=== PATIENT | male | born 1960 | race American Indian/Alaskan Native ===

== ENCOUNTER 2018-03-23 13:20 | Emergency (ER) | payer BC ==
[2018-03-23] MEDS ORDERED: TYLENOL ONE (13:43)
[2018-03-23] MEDS ORDERED: TYLENOL PO ONE (13:44)
--- NOTE | 2018-03-23 14:22 | Emergency Department Report ---
Chief Complaint: Sore Throat Stated Complaint: SORE THROAT Time Seen by Provider: 03/23/18 14:19 - HPI History of Present Illness: 57-year-old male presents to the emergency department with complaint of a sore throat that started yesterday but worsened this morning. Patient presents with a fever but denies feeling febrile. He is able to drink and tolerates liquids but has some pain with doing so. He has a history of hypertension. His primary care physician is Dr. Adolfo Du. No recent travel or sick contacts at home. - ROS Review of Systems: Positive for sore throat and presents with fever Negative for neck pain, headache, chest pain, shortness of breath - Exam Vital Signs: Vital Signs 03/23/18 13:38 Temperature 101.3 F H Pulse Rate 84 Blood Pressure 107/77 O2 Sat by Pulse 98 Oximetry Physical Exam: Patient has a hypervascular appearance to the posterior pharynx. No tonsillar hypertrophy or exudates. There is some erythema and hypertrophy of the uvula. No drooling or trismus. MSE screening note: Focused history and physical exam performed. Due to findings the following was ordered: Patient will have a rapid strep test done ED Disposition for MSE Condition: Stable Referrals: PRIMARY CARE, [Primary Care Provider] - 3-5 Days
[2018-03-23] MEDS ORDERED: AUGMENTIN 875 MG PO ONE (14:55)
[2018-03-23 15:10] VITALS: BP 122/83
--- NOTE | 2018-03-23 15:12 | Emergency Department Report ---
HPI - General Chief Complaint: Sore Throat Time Seen by Provider: 03/23/18 14:19 - HPI HPI: 57-year-old male presents to the emergency department with complaint of a sore throat that started yesterday but worsened this morning. Patient presents with a fever but denies feeling febrile. He is able to drink and tolerates liquids but has some pain with doing so. He has a history of hypertension. His primary care physician is Dr. Adolfo Du. No recent travel or sick contacts at home. ED Past Medical Hx - Past Medical History Hx Hypertension: Yes - Surgical History Past Surgical History?: No - Social History Smoking Status: Current Every Day Smoker Substance Use Type: Alcohol - Medications Home Medications: Home Medications Medication Instructions Recorded Confirmed Last Taken Type Amoxicillin/Potassium Clav 1 each PO BID #20 tablet 03/23/18 Unknown Rx [Augmentin 875-125 Tablet] ED Review of Systems ROS: Stated complaint: SORE THROAT Other details as noted in HPI Comment: All other systems reviewed and negative Constitutional: fever (fever here but otherwise has not felt febrile). denies: chills Eyes: denies: eye pain, eye discharge, vision change ENT: throat pain. denies: ear pain Respiratory: denies: cough, shortness of breath, wheezing Cardiovascular: denies: chest pain, palpitations Gastrointestinal: denies: abdominal pain, nausea, diarrhea Genitourinary: denies: urgency, dysuria Musculoskeletal: denies: back pain, joint swelling, arthralgia Skin: denies: rash, lesions Neurological: denies: headache, weakness, paresthesias Physical Exam - Physical Exam Vital Signs: Vital Signs 03/23/18 13:38 Temperature 101.3 F H Pulse Rate 84 Blood Pressure 107/77 O2 Sat by Pulse 98 Oximetry Physical Exam: GENERAL: The patient is well-developed well-nourished. HENT: Normocephalic. Atraumatic. Patient has moist mucous membranes. Posterior pharynx is hypervascular and slightly irritated. There is no tonsillar hypertrophy. However the uvula is elongated and erythematous concerning for uvulitis. No drooling or trismus. EYES: Extraocular motions are intact. Pupils equal reactive to light bilaterally. NECK: Supple. Trachea is midline. CHEST/LUNGS: Clear to auscultation. There is no respiratory distress noted. HEART/CARDIOVASCULAR: Regular. There is no tachycardia. There is no murmur. ABDOMEN: There is no abdominal distention. SKIN: Skin is warm and dry. NEURO: The patient is awake, alert, and oriented. The patient is cooperative. The patient has no focal neurologic deficits. MUSCULOSKELETAL: There is no tenderness or deformity. There is no evidence of acute injury. ED Course Vital Signs 03/23/18 13:38 Temperature 101.3 F H Pulse Rate 84 Blood Pressure 107/77 O2 Sat by Pulse 98 Oximetry ED Medical Decision Making - Medical Decision Making Patient presents with sore throat that's been getting worse since yesterday. No drooling or trismus. He presents with a low-grade fever. He was given a dose of Tylenol and his fever resolved prior to discharge. Negative rapid strep but it appears more consistent with a uvulitis. He was given a dose of Augmentin here and was able to swallow down without any difficulty. He's been encouraged to follow-up with the primary care physician on Sunday, Dr. Du. He will be given a 10 day course of Augmentin and will use Tylenol/ibuprofen as needed for pain and fever control. He will return to the ER with any worsening of symptoms or any acute distress. - Differential Diagnosis strep pharyngitis, uvulitis, mono, viral pharyngitis Critical Care Time: No Critical care attestation.: If time is entered above; I have spent that time in minutes in the direct care of this critically ill patient, excluding procedure time. ED Disposition Clinical Impression: Uvulitis Pharyngitis Qualifiers: Pharyngitis/tonsillitis etiology: unspecified etiology Qualified Code(s): J02.9 - Acute pharyngitis, unspecified Disposition: - TO HOME OR SELFCARE Is pt being admited?: No Condition: Stable Instructions: Pharyngitis (ED), Uvulitis (ED) Additional Instructions: Please follow-up with your primary care physician in the next few days. Return to the emergency Department with any worsening of her symptoms, intractable fever, inability to swallow liquids and solids and stay hydrated and nourished, or with any acute distress. You can use Tylenol every 4 hours and ibuprofen every 6 hours, using weight- based dosing on the back of the bottle, as needed for fever or discomfort. Prescriptions: Amoxicillin/Potassium Clav [Augmentin 875-125 Tablet] 1 each PO BID #20 tablet Referrals: ADOLFO DU MD [Staff Physician] - 2-3 Days Forms: Work/School Release Form(ED) Time of Disposition: 15:12
== END 2018-03-23 15:22 | disposition home or self-care (01) ==
LOC: ED 13:20
DX: K12.2 Cellulitis and abscess of mouth (principal); J02.9 Acute pharyngitis, unspecified; I10 Essential (primary) hypertension; F17.200 Nicotine dependence, unspecified, uncomplicated
CPT/HCPCS: 87116; 87430; 99283

== ENCOUNTER 2019-05-14 11:22 | Emergency (ER) | payer BC ==
--- NOTE | 2019-05-14 12:04 | Emergency Department Report ---
ED ENT HPI - General Chief complaint: Earache Stated complaint: EAR PAIN Time Seen by Provider: 05/14/19 12:00 Source: patient Mode of arrival: Ambulatory Limitations: No Limitations - History of Present Illness Initial comments: This is a 58-year-old male nontoxic well in appearance with no signs of distress presents to the ED with complaint of left earache. Patient denies any hearing loss. Denies any mastoid tenderness. Denies any fever, chills, headache, nausea, vomiting, chest pain or SOB. Denies any other complaints. Denies any allergies. MD complaint: ear pain -: days(s) Location: R ear Severity: mild Severity scale (0 -10): 8 Quality: aching Consistency: constant Improves with: none Worsens with: none Associated Symptoms: denies: fever, cough, gum swelling, toothache, pain with swallowing, sore throat, tinnitus, hearing loss, discharge from ear, rhinorrhea - Related Data Previous Rx's Medication Instructions Recorded Last Taken Type Amoxicillin/Potassium Clav 1 each PO BID #20 tablet 03/23/18 Unknown Rx [Augmentin 875-125 Tablet] Acetaminophen/Codeine [Tylenol 1 tab PO Q6H PRN #12 tab 05/14/19 Unknown Rx /Codeine # 3 tab] Amoxicillin [Amoxicillin TAB] 875 mg PO BID #20 tablet 05/14/19 Unknown Rx Allergies Allergy/AdvReac Type Severity Reaction Status Date / Time No Known Allergies Allergy Unverified 03/23/18 13:43 ED Dental HPI - General Chief complaint: Earache Stated complaint: EAR PAIN Time Seen by Provider: 05/14/19 12:00 Source: patient Mode of arrival: Ambulatory Limitations: No Limitations - Related Data Previous Rx's Medication Instructions Recorded Last Taken Type Amoxicillin/Potassium Clav 1 each PO BID #20 tablet 03/23/18 Unknown Rx [Augmentin 875-125 Tablet] Acetaminophen/Codeine [Tylenol 1 tab PO Q6H PRN #12 tab 05/14/19 Unknown Rx /Codeine # 3 tab] Amoxicillin [Amoxicillin TAB] 875 mg PO BID #20 tablet 05/14/19 Unknown Rx Allergies Allergy/AdvReac Type Severity Reaction Status Date / Time No Known Allergies Allergy Unverified 03/23/18 13:43 ED Review of Systems ROS: Stated complaint: EAR PAIN Other details as noted in HPI Constitutional: denies: chills, fever Eyes: denies: eye pain, eye discharge, vision change ENT: ear pain. denies: throat pain Respiratory: denies: cough, shortness of breath, wheezing Cardiovascular: denies: chest pain, palpitations Endocrine: no symptoms reported Gastrointestinal: denies: abdominal pain, nausea, diarrhea Genitourinary: denies: urgency, dysuria Musculoskeletal: denies: back pain, joint swelling, arthralgia Skin: denies: rash, lesions Neurological: denies: headache, weakness, paresthesias Psychiatric: denies: anxiety, depression Hematological/Lymphatic: denies: easy bleeding, easy bruising ED Past Medical Hx - Past Medical History Previous Medical History?: Yes Hx Hypertension: Yes - Surgical History Past Surgical History?: No - Social History Smoking Status: Current Every Day Smoker Substance Use Type: Alcohol - Medications Home Medications: Home Medications Medication Instructions Recorded Confirmed Last Taken Type Amoxicillin/Potassium Clav 1 each PO BID #20 tablet 03/23/18 Unknown Rx [Augmentin 875-125 Tablet] Acetaminophen/Codeine [Tylenol 1 tab PO Q6H PRN #12 tab 05/14/19 Unknown Rx /Codeine # 3 tab] Amoxicillin [Amoxicillin TAB] 875 mg PO BID #20 tablet 05/14/19 Unknown Rx ED Physical Exam - General Limitations: No Limitations General appearance: alert, in no apparent distress - Head Head exam: Present: atraumatic, normocephalic - Eye Eye exam: Present: normal appearance - Expanded ENT Exam Expanded Ear exam: Present: normal external inspection TM/Canal exam: Erythema: Right TM, Bulging: Right TM Mouth exam: Present: normal external inspection Teeth exam: Present: normal inspection Throat exam: Positive: normal inspection - Neck Neck exam: Present: normal inspection, full ROM. Absent: tenderness, meningismus, lymphadenopathy - Extremities Exam Extremities exam: Present: normal inspection, full ROM - Back Exam Back exam: Present: normal inspection, full ROM - Neurological Exam Neurological exam: Present: alert, oriented X3, normal gait - Psychiatric Psychiatric exam: Present: normal affect, normal mood - Skin Skin exam: Present: warm, dry, intact, normal color. Absent: rash - Other Other exam information: no mastoid tenderness. ED Course - Reevaluation(s) Reevaluation #1: 05/14/19 12:02 Patient is speaking in full sentences with no signs of distress noted. ED Medical Decision Making - Medical Decision Making Patient was instructed to Follow-up with a primary care doctor in 3-5 days or if symptoms worsen and continue return to emergency room as soon as possible. At time of discharge, the patient does not seem toxic or ill in appearance. No acute signs of distress noted. Patient agrees to discharge treatment plan of care. No further questions noted by the patient. Critical care attestation.: If time is entered above; I have spent that time in minutes in the direct care of this critically ill patient, excluding procedure time. ED Disposition Clinical Impression: Right otitis media Qualifiers: Otitis media type: unspecified Qualified Code(s): H66.91 - Otitis media, unspecified, right ear Disposition: TO HOME OR SELFCARE Is pt being admited?: No Does the pt Need Aspirin: No Condition: Stable Instructions: Otitis Media (ED) Additional Instructions: Follow-up with a primary care doctor in 3-5 days or if symptoms worsen and continue return to emergency room as soon as possible. Prescriptions: Amoxicillin [Amoxicillin TAB] 875 mg PO BID #20 tablet Acetaminophen/Codeine [Tylenol /Codeine # 3 tab] 1 tab PO Q6H PRN #12 tab PRN Reason: Pain , Severe (7-10) Referrals: PRIMARY CARE, [Referring] - 3-5 Days RAMAN STODDARD MD [Staff Physician] - 3-5 Days [facility] [Outside] - 3-5 Days Forms: Work/School Release Form(ED)
[2019-05-14 12:05] VITALS: BP 104/74
== END 2019-05-14 12:52 | disposition home or self-care (01) ==
LOC: ED 11:22
DX: H66.91 Otitis media, unspecified, right ear (principal); I10 Essential (primary) hypertension; F17.200 Nicotine dependence, unspecified, uncomplicated; Z79.899 Other long term (current) drug therapy
CPT/HCPCS: 99282

== ENCOUNTER 2019-10-03 13:40 | Emergency (ER) | payer BC, OTHER ==
--- NOTE | 2019-10-03 14:58 | Event Note ---
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 Further treatment and workup at subsequent clinical providers discretion. Patient/guardian urged not to elope from the ED as their condition may be serious if not clinically assessed and managed.
[2019-10-03 15:00] VITALS: BP 188/125
[2019-10-03] MEDS ORDERED: KETOROLAC 30 MG/1 ML INJ IM ONE (16:08)
[2019-10-03] MEDS ORDERED: dexAMETHasone 20 MG/5 ML VIAL IM ONE (16:08)
--- NOTE | 2019-10-03 16:14 | Emergency Department Report ---
ED Back Pain/Injury HPI - General Chief Complaint: Back Pain/Injury Stated Complaint: RIGHT BACK PAIN Time Seen by Provider: 10/03/19 14:55 Source: patient Limitations: No Limitations - History of Present Illness Initial Comments: This pleasant 59-year-old male presents the emergency department with chief complaint of right-sided lower back pain that radiates down the right leg. Patient rates the severity of his pain as 8 out of 10. He reports pain is aggravated by movement and there are no alleviating factors. Patient reports she has had similar pain over the past years however this has been aggravated of the past week. He reports past medical history of hypertension which she normally takes amlodipine. He states he just recently took it 30 minutes prior to arrival. He denies any previous surgeries. He specifically denies any associated fevers, chills, night sweats, headache, dizziness, blurry vision, chest pain, shortness of breath, urinary or bowel incontinence, saddle anesthesia, urinary retention or any other associated symptoms. - Related Data Previous Rx's Medication Instructions Recorded Last Taken Type Amoxicillin/Potassium Clav 1 each PO BID #20 tablet 03/23/18 Unknown Rx [Augmentin 875-125 Tablet] Acetaminophen/Codeine [Tylenol 1 tab PO Q6H PRN #12 tab 05/14/19 Unknown Rx /Codeine # 3 tab] Amoxicillin [Amoxicillin TAB] 875 mg PO BID #20 tablet 05/14/19 Unknown Rx Naproxen 500 mg PO BID #20 tablet 10/03/19 Unknown Rx methOCARBAMOL [Robaxin TAB] 500 mg PO Q6H #20 tablet 10/03/19 Unknown Rx methylPREDNISolone [Medrol 4MG 4 mg PO QDAY #1 tab.ds.pk 10/03/19 Unknown Rx DOSEPAK (21 tabs)] Allergies Allergy/AdvReac Type Severity Reaction Status Date / Time No Known Allergies Allergy Unverified 03/23/18 13:43 ED Review of Systems ROS: Stated complaint: RIGHT BACK PAIN Other details as noted in HPI Comment: All other systems reviewed and negative Constitutional: denies: chills, fever Eyes: denies: eye pain, eye discharge, vision change ENT: denies: ear pain, throat pain Respiratory: denies: cough, shortness of breath, wheezing Cardiovascular: denies: chest pain, palpitations Endocrine: no symptoms reported Gastrointestinal: denies: abdominal pain, nausea, diarrhea Genitourinary: denies: urgency, dysuria Musculoskeletal: denies: back pain, joint swelling, arthralgia Skin: denies: rash, lesions Neurological: denies: headache, weakness, paresthesias Psychiatric: denies: anxiety, depression Hematological/Lymphatic: denies: easy bleeding, easy bruising ED Past Medical Hx - Past Medical History Previous Medical History?: Yes Hx Hypertension: Yes - Surgical History Past Surgical History?: No - Social History Smoking Status: Current Every Day Smoker Substance Use Type: Alcohol - Medications Home Medications: Home Medications Medication Instructions Recorded Confirmed Last Taken Type Amoxicillin/Potassium Clav 1 each PO BID #20 tablet 03/23/18 Unknown Rx [Augmentin 875-125 Tablet] Acetaminophen/Codeine [Tylenol 1 tab PO Q6H PRN #12 tab 05/14/19 Unknown Rx /Codeine # 3 tab] Amoxicillin [Amoxicillin TAB] 875 mg PO BID #20 tablet 05/14/19 Unknown Rx Naproxen 500 mg PO BID #20 tablet 10/03/19 Unknown Rx methOCARBAMOL [Robaxin TAB] 500 mg PO Q6H #20 tablet 10/03/19 Unknown Rx methylPREDNISolone [Medrol 4MG 4 mg PO QDAY #1 tab.ds.pk 10/03/19 Unknown Rx DOSEPAK (21 tabs)] ED Physical Exam - General Limitations: No Limitations General appearance: alert, in no apparent distress - Head Head exam: Present: atraumatic, normocephalic - Eye Eye exam: Present: normal appearance - ENT ENT exam: Present: normal exam, normal orophraynx, mucous membranes moist - Neck Neck exam: Present: normal inspection. Absent: tenderness, meningismus - Respiratory Respiratory exam: Present: normal lung sounds bilaterally. Absent: respiratory distress, wheezes, rales, rhonchi, stridor - Cardiovascular Cardiovascular Exam: Present: regular rate, normal rhythm. Absent: systolic murmur, diastolic murmur, rubs, gallop - GI/Abdominal GI/Abdominal exam: Present: soft, normal bowel sounds. Absent: distended, tenderness, guarding, rebound, rigid, pulsatile mass - Rectal Rectal exam: Present: deferred - Extremities Exam Extremities exam: Present: normal inspection, full ROM, other (no posterior calf tenderness bilaterally, negative Homans sign bilaterally.). Absent: tenderness - Back Exam Back exam: Present: normal inspection, full ROM, tenderness (tenderness to the right upper gluteal muscle. No tenderness to palpation over the midline lumbar) - Neurological Exam Neurological exam: Present: alert, oriented X3 - Psychiatric Psychiatric exam: Present: normal affect, normal mood - Skin Skin exam: Present: warm, dry, intact, normal color. Absent: rash ED Course Vital Signs 10/03/19 14:55 Temperature 97.7 F Pulse Rate 61 Respiratory 18 Rate Blood Pressure 188/125 Blood Pressure 183/106 [Right] O2 Sat by Pulse 99 Oximetry ED Medical Decision Making - Medical Decision Making Patient is nontoxic in no acute distress. He had no injury and midline tenderness of the lumbar spine making fracture unlikely no imaging was indicated at this time. Patient will be treated for lumbosacral radiculopathy with IM steroids and Toradol and given outpatient follow-up with orthopedics. Recommended return emergently with any saddle anesthesia, urinary bowel incontinence, fever, urinary retention or any other associated symptoms. Patient history cancer making metastatic disease of the spine likely. Patient had no injury acute epidural hematoma unlikely. Patient denies fever or IV drug use making epidural abscess unlikely. Patient verbalizes understanding of the diagnosis, treatment plan and follow-up instructions and all his questions were answered. - Differential Diagnosis strain, sprain, fracture Critical care attestation.: If time is entered above; I have spent that time in minutes in the direct care of this critically ill patient, excluding procedure time. ED Disposition Clinical Impression: Lumbosacral radiculopathy Disposition: - TO HOME OR SELFCARE Is pt being admited?: No Condition: Stable Instructions: Low Back Strain (ED) Prescriptions: methylPREDNISolone [Medrol 4MG DOSEPAK (21 tabs)] 4 mg PO QDAY #1 tab.ds.pk Naproxen 500 mg PO BID #20 tablet methOCARBAMOL [Robaxin TAB] 500 mg PO Q6H #20 tablet Referrals: NATHAN RIBEIRO MD [Staff Physician] - 3-5 Days Forms: Work/School Release Form(ED) Time of Disposition: 16:15
== END 2019-10-03 17:07 | disposition home or self-care (01) ==
LOC: ED 13:40
DX: M54.17 Radiculopathy, lumbosacral region (principal); F17.200 Nicotine dependence, unspecified, uncomplicated; I10 Essential (primary) hypertension
CPT/HCPCS: 96372; 99282; J1100; J1885

== ENCOUNTER 2019-11-06 01:22 | Inpatient (IN) | payer OTHER ==
--- NOTE | 2019-11-06 01:27 | Emergency Department Report ---
HPI - General Time Seen by Provider: 11/06/19 01:23 - HPI HPI: 59-year-old -[place] male presents to the emergency department via EMS from home with the complaint of some altered mental status and a witnessed seizure. The patient went to sleep around 10:30 and was complaining to his that he was "seeing colors." Prior to presentation the patient had witnessed seizure-like activity and he does not have any seizure history. After the seizure the patient became altered, was rambling and agitated. He is awake and is currently a poor historian. He has a past medical history of hypertension. The patient was here about one month ago for some issues with back pain. A code stroke was initiated. ED Past Medical Hx - Past Medical History Hx Hypertension: Yes - Social History Smoking Status: Current Every Day Smoker Substance Use Type: Alcohol - Medications Home Medications: Home Medications Medication Instructions Recorded Confirmed Last Taken Type Amoxicillin/Potassium Clav 1 each PO BID #20 tablet 03/23/18 Unknown Rx [Augmentin 875-125 Tablet] Acetaminophen/Codeine [Tylenol 1 tab PO Q6H PRN #12 tab 05/14/19 Unknown Rx /Codeine # 3 tab] Amoxicillin [Amoxicillin TAB] 875 mg PO BID #20 tablet 05/14/19 Unknown Rx Naproxen 500 mg PO BID #20 tablet 10/03/19 Unknown Rx methOCARBAMOL [Robaxin TAB] 500 mg PO Q6H #20 tablet 10/03/19 Unknown Rx methylPREDNISolone [Medrol 4MG 4 mg PO QDAY #1 tab.ds.pk 10/03/19 Unknown Rx DOSEPAK (21 tabs)] ED Review of Systems ROS: Stated complaint: AMS/SEIZURE Other details as noted in HPI Comment: Unobtainable due to pts medical conditions Physical Exam - Physical Exam Physical Exam: GENERAL: The patient is well-developed well-nourished. HEENT: Normocephalic. Atraumatic. Patient has moist mucous membranes. EYES: Extraocular motions are intact. Pupils equal and reactive to light bilaterally. NECK: Supple. Trachea is midline. CHEST/LUNGS: Clear to auscultation. There is no respiratory distress noted. HEART/CARDIOVASCULAR: Regular. There is no tachycardia. There is no murmur. ABDOMEN: Abdomen is soft, nontender. Patient has normal bowel sounds. There is no abdominal distention. SKIN:Skin is warm and dry. . NEURO: The patient is awake, alert, and cooperative. No motor or sensory deficits. There is no dysarthria but some questionable aphasia. No facial asymmetry. No pronator drift. MUSCULOSKELETAL: There is no tenderness or deformity. There is no limitation range of motion. There is no evidence of acute injury. ED Course - Consultations Consultation #1: 11/06/19 04:40 The patient was seen by the telemedicine neurologist, Dr. Quiroga, immediately after the patient returned from CT for his CT scan of the head. Dr. Quiroga gave him a NIH stroke scale of 1. He felt the patient's presentation was more consistent with a postictal state after a new onset of seizures and did not feel that TPA was indicated. ED Medical Decision Making - Lab Data Result diagrams: 11/06/19 01:57 11/06/19 01:57 - EKG Data -: EKG Interpreted by De EKG shows normal: sinus rhythm (sinus arrhythmia), axis, intervals (prolonged MT interval), QRS complexes (LVH), ST-T waves Rate: normal (58 bpm) - EKG Data When compared to previous EKG there are: previous EKG unavailable Interpretation: other (sinus arrhythmia with mild bradycardia, prolonged MT interval, LVH) - Radiology Data Radiology results: report reviewed CT HEAD WITHOUT CONTRAST INDICATION: STROKE PROTOCOL!!! Stroke-like symptoms TECHNIQUE: Axial slices were obtained through the head. Coronal and sagittal reformatted images were obtained. COMPARISON: None available. FINDINGS: There is no intracranial hemorrhage or extra-axial fluid collection. There is mild atrophy. There is microangiopathy. There is no mass lesion or midline shift. There are small hypodensities in the right caudate nucleus characteristic of infarctions. These appear to be chronic.98 no large territorial infarct is identified . There is also some decreased attenuation in the left insular cortex characteristic of ischemic change. This is age indeterminate Bone windows demonstrate no acute osseous abnormality. Paranasal sinuses and mastoid air cells appear clear. TECHNIQUE: All CT scans at this facility use dose modulation, iterative reconstruction, automated exposure control, weight based dosing, when appropriate, to reduce radiation dose to as low as reasonably achievable. IMPRESSION: 1. There is no intracranial hemorrhage. Hypodensities in the right caudate nucleus are characteristic of infarctions. These appear to be chronic. There is some decreased attenuation in the left insular cortex also likely related to is chemic change. This is age indeterminate. There is mild atrophy. There is microangiopathic change. - Medical Decision Making This patient presents to the emergency department after having some type of colorful visual disturbance, and then having some witnessed seizure-like activity followed by some type of altered mental status. The patient arrives to the emergency department awake and cooperative but his is at bedside and says that he is not making sense and his speech is altered, although not significantly slurred. For this reason a code stroke was initiated. CT scan of the head was done that did not show any acute intracranial hemorrhage. There was no mention of an age-indeterminate area of decreased attenuation in the left insular cortex. An EKG was done that showed some LVH and a prolonged MT interval but otherwise no ST elevation AR. Patient had an extremely elevated T SH but only a mildly decreased free T4. Patient also has a urinary tract infection. He has been treated with Rocephin. The patient's mentions that the patient often drinks alcohol on a regular basis "when he can get it." He does not have any other signs of alcohol withdrawal at this time but this is also in consideration with this new onset of seizures. The alcohol withdrawal protocol has been placed on this patient but he has not required any Ativan for a high enough CIWA score. The patient will be admitted to the hospital for further evaluation and treatment and was accepted for admission by the hospitalist, Dr. Rodriguez. - Differential Diagnosis CVA, TIA, seizures with postictal state, alcohol withdrawal seizure Critical Care Time: No Critical care attestation.: If time is entered above; I have spent that time in minutes in the direct care of this critically ill patient, excluding procedure time. ED Disposition Clinical Impression: New onset seizure Hypertension Qualifiers: Hypertension type: essential hypertension Qualified Code(s): I10 - Essential (primary) hypertension Hypothyroidism Qualifiers: Hypothyroidism type: unspecified Qualified Code(s): E03.9 - Hypothyroidism, unspecified UTI (urinary tract infection) Qualifiers: Urinary tract infection type: acute cystitis Hematuria presence: without hematuria Qualified Code(s): N30.00 - Acute cystitis without hematuria Disposition: OP ADMIT IP TO THIS HOSP Is pt being admited?: Yes Condition: Fair Time of Disposition: 04:45
--- NOTE | 2019-11-06 01:37 | Consultation ---
History of Present Illness History of present illness: [facility] Date of Service: 11/06/2019 01:20:49 Impression: RO Acute Ischemic Stroke seizure Comments: 1. Cardioembolic stroke 2. Small vessel disease/lacune 3. Thromboembolic, [id number] mechanism 4. Hypercoagulable state-related infarct 5. Thrombotic mechanism, large artery disease 6. Transient ischemic attack Metrics: Last Known Well: 10/30/2019 22:00:00 [facility] Notification Time: 11/06/2019 01:20:25 Arrival Time: 11/06/2019 01:22:00 Stamp Time: 11/06/2019 01:20:49 Time First Login Attempt: 11/06/2019 01:24:33 Video Start Time: 11/06/2019 01:24:33 Symptoms: AMS and seizure NIHSS Start Assessment Time: 11/06/2019 01:43:12 Patient is not a candidate for tPA. Patient was not deemed candidate for tPA thrombolytics because of No focal neurologic deficits. NIHSS 1 for missing orientation to month. CT head was reviewed. Presentation is not suggestive of Large Vessel Occlusive disease. Advanced imaging was not obtained as the presentation was not suggestive of Large Vessel Occlusive Disease. ED Physician notified of diagnostic impression and management plan on 11/06/2019 01:47:37 Our recommendations are outlined below. Recommendations: Activate Stroke Protocol Admission/Order Set Stroke/Telemetry Floor Neuro Checks Bedside Swallow Eval DVT Prophylaxis IV Fluids, Normal Saline Head of Bed Below 30 Degrees Euglycemia and Avoid Hyperthermia (PRN Acetaminophen) Keppra 1 gram now and then 500 mg BID ASA if no contraindication Recommended Scan: MRI Head with and Without Contrast Lipid Panel to Be Obtained, if Not Done in the Last Three Months Therapies: Physical Therapy, Occupational Therapy, Speech Therapy Assessment When Applicable Dysphaghia Screen: Swallow Evaluation, Bedside NPO Until Swallow Evaluation DVT prophylaxis: Choice of Primary Team Disposition: Follow up with Teleneurology Follow up Sign Out: Discussed with Emergency Department Provider History of Present Illness: Patient is a 59 year old Male. Patient was brought by EMS for symptoms of AMS and seizure 59 y/o man with h/o HTN presents with AMS and new onset seizure. Emergent telestroke consult. Last known normal at 2200 as per at bedside. No h/o seizures as per at bedside. Emergent telestroke consult requested. CT head reviewed and case discussed with ED Staff. EMS reported the patient had a seizure which lasted about a minute and has been post-ictal. No recent illnesses as per . Patient is awake and alert. NIHSS 1 (missed month). Patient denies tongue bite. No incontinence. CT head was reviewed. Examination: 1A: Level of Consciousness - Alert; keenly responsive + 0 1B: Ask Month and Age - 1 Question Right + 1 1C: Blink Eyes & Squeeze Hands - Performs Both Tasks + 0 2: Test Horizontal Extraocular Movements - Normal + 0 3: Test Visual Trejo - No Visual Loss + 0 4: Test Facial Palsy (Use Grimace if Obtunded) - Normal symmetry + 0 5A: Test Left Arm Motor Drift - No Drift for 10 Seconds + 0 5B: Test Right Arm Motor Drift - No Drift for 10 Seconds + 0 6A: Test Left Leg Motor Drift - No Drift for 5 Seconds + 0 6B: Test Right Leg Motor Drift - No Drift for 5 Seconds + 0 7: Test Limb Ataxia (FNF/Heel-Harp) - No Ataxia + 0 8: Test Sensation - Normal; No sensory loss + 0 9: Test Language/Aphasia - Normal; No aphasia + 0 10: Test Dysarthria - Normal + 0 11: Test Extinction/Inattention - No abnormality + 0 NIHSS Score: 1 Patient and patient's spouse was informed the Neurology Consult would happen via TeleHealth consult by way of interactive audio and video telecommunications and consented to receiving care in this manner. Due to the immediate potential for life-threatening deterioration due to underlying acute neurologic illness, I spent 20 minutes providing critical care. This time includes time for face to face visit via telemedicine, review of medic al records, imaging studies and discussion of findings with providers, the patient and/or family. Dr Poli Quiroga [facility] Case [id number] Medications and Allergies Allergies Allergy/AdvReac Type Severity Reaction Status Date / Time No Known Allergies Allergy Unverified 03/23/18 13:43 Home Medications Medication Instructions Recorded Confirmed Last Taken Type Amoxicillin/Potassium Clav 1 each PO BID #20 tablet 03/23/18 Unknown Rx [Augmentin 875-125 Tablet] Acetaminophen/Codeine [Tylenol 1 tab PO Q6H PRN #12 tab 05/14/19 Unknown Rx /Codeine # 3 tab] Amoxicillin [Amoxicillin TAB] 875 mg PO BID #20 tablet 05/14/19 Unknown Rx Naproxen 500 mg PO BID #20 tablet 10/03/19 Unknown Rx methOCARBAMOL [Robaxin TAB] 500 mg PO Q6H #20 tablet 10/03/19 Unknown Rx methylPREDNISolone [Medrol 4MG 4 mg PO QDAY #1 tab.ds.pk 10/03/19 Unknown Rx DOSEPAK (21 tabs)]
[2019-11-06] MEDS ORDERED: ASPIRIN 81 MG TAB CHEW PO ONE (01:50)
[2019-11-06] MEDS ORDERED: ASPIRIN 81 MG TAB CHEW ONE (01:53)
[2019-11-06] MEDS ORDERED: levETIRAcetam 1000 MG/NS 0.75% 1,000 MG/100 ML BAG IV ONE ×2 (01:56→04:48)
--- NOTE | 2019-11-06 02:02 | Cat Scan Report ---
CT HEAD WITHOUT CONTRAST INDICATION: STROKE PROTOCOL!!! Stroke-like symptoms TECHNIQUE: Axial slices were obtained through the head. Coronal and sagittal reformatted images were obtained. COMPARISON: None available. FINDINGS: There is no intracranial hemorrhage or extra-axial fluid collection. There is mild atrophy. There is microangiopathy. There is no mass lesion or midline shift. There are small hypodensities in the right caudate nucleus characteristic of infarctions. These appear to be chronic.98 no large territorial in farct is identified . There is also some decreased attenuation in the left insular cortex characteristic of ischemic change . This is age indeterminate Bone windows demonstrate no acute osseous abnormality. Paranasal sinuses and mastoid air cells appear clear. TECHNIQUE: All CT scans at this facility use dose modulation, iterative reconstruction, automated ex posure control, weight based dosing, when appropriate, to reduce radiation dose to as low as reasonab ly achievable. IMPRESSION: 1. There is no intracranial hemorrhage. Hypodensities in the right caudate nucleus are characteristic of infarctions. These appear to be nurses' registry director linda. There is some decreased attenuation in the left insular cortex also likely related to ischemic c hange. This is age indeterminate. There is mild atrophy. There is microangiopathic change. Stroke protocol: Results were phoned to Dr. Herrera in the emergency department at 0057 hours central time Signer Name: Jesus Rm MD Signed: 11/06/2019 1:57 AM Workstation Name: [id number]
[2019-11-06 02:05] LABS: Basophils % (Auto) 0.5 % (0.0-1.8); Eosinophils # (Auto) 0.2 K/mm3 (0.0-0.4); Eosinophils % (Auto) 2.3 % (0.0-4.3); Hematocrit 37.9 % (35.5-45.6); Hemoglobin 12.4 gm/dl (11.8-15.2); Lymphocytes # (Auto) 1.5 K/mm3 (1.2-5.4); Lymphocytes % (Auto) 14.1 % (13.4-35.0); Mean Corpuscular HGB Conc 33 % (32-34); Mean Corpuscular Volume 85 fl (84-94); Monocytes # (Auto) 0.5 K/mm3 (0.0-0.8); Monocytes % (Auto) 4.9 % (0.0-7.3); Platelet Count 257 K/mm3 (140-440); Red Blood Count 4.47 M/mm3 (3.65-5.03); Red Cell Distribution Width 17.2 % (13.2-15.2)
[2019-11-06] MEDS ORDERED: LORazepam 2 MG/ML VIAL IV PRN ×2 (02:10)
[2019-11-06 02:23] LABS: Alanine Aminotransferase 14 units/L (7-56); Albumin 4.3 g/dL (3.9-5); BUN/Creatinine Ratio 11; Blood Urea Nitrogen 15 mg/dL (9-20); Calcium 9.6 mg/dL (8.4-10.2); Hemolysis Index 1
[2019-11-06 02:28] LABS: INR 1.09 (0.87-1.13); Partial Thromboplastin Time 26.7 Sec. (24.2-36.6); Thrombin Time 16.3 Sec. (15.1-19.6)
[2019-11-06 03:18] LABS: Bacteria,Urine 1+ /HPF (Negative); Bilirubin,Urine NEG (Negative); Blood,Urine SM (Negative); Color,Urine Straw (Yellow); Mucus,Urine FEW /HPF; Urobilinogen,Urine < 2.0 mg/dL (<2.0)
[2019-11-06 03:20] LABS: Amphetamine Screen,Urine PRESUMPTIVE NEGATIVE; Benzodiazepines Screen,Urine PRESUMPTIVE NEGATIVE; Cannabinoid Screen,Urine PRESUMPTIVE NEGATIVE; Cocaine Screen,Urine PRESUMPTIVE NEGATIVE; Methadone Screen,Urine PRESUMPTIVE NEGATIVE; Opiate Screen,Urine PRESUMPTIVE NEGATIVE
[2019-11-06] MEDS ORDERED: cefTRIAXone/NS 1 GM/50 ML 1 GM/50 ML BAG IV ONE (04:02)
[2019-11-06] MEDS ORDERED: ONDANSETRON 4 MG/2 ML INJ IV PRN (05:13)
[2019-11-06] MEDS ORDERED: ACETAMINOPHEN 325 MG TAB PO PRN (05:13)
[2019-11-06] MEDS ORDERED: hydrALAZINE 20 MG/1 ML INJ IV PRN (05:19)
[2019-11-06] MEDS ORDERED: oxyCODONE /ACETAMINOPHEN 5-325MG TAB PO PRN (05:19)
--- NOTE | 2019-11-06 05:20 | History and Physical Report ---
History of Present Illness History of present illness: 59-year-old man with a history of hypertension, chronic alcohol abuse comes emergency room because he was noted to had a seizure at home. Patient stated he usually drinks a lot but over the last few days he has been drinking only 1 beer a day. Patient was loaded with IV Ativan, Keppra. patient is being admitted for alcohol withdrawal seizures Review of systems Constitutional: no weight loss, chills, fever Ears, eyes, nose, mouth and throat: no nasal congestion, no nasal discharge, no sinus pressure, no vision change, no red eye. Neck: No neck pain or rigidity. Cardiovascular: no palpitations, chest pain Respiratory: no cough, shortness of breath Gastrointestinal: no hematochezia, abdominal pain Genitourinary : no frequency , no hematuria Musculoskeletal: no joint swelling or muscle ache Integumentary: no rash, no pruritis Neurological: no parathesias, no focal weakness Endocrine: no cold or heat intolerance, no polyuria or polydipsia Hematologic/Lymphatic: no easy bruising, no easy bleeding, no gland swelling Allergic/Immunologic: no urticaria, no angioedema. PAST MEDICAL HISTORY: hypertension, chronic alcoholism PAST SURGICAL HISTORY: None SOCIAL HISTORY: denies a tobacco, drugs, alcohol as discussed above FAMILY HISTORY:Hypertension Medications and Allergies Allergies Allergy/AdvReac Type Severity Reaction Status Date / Time No Known Allergies Allergy Unverified 03/23/18 13:43 Home Medications Medication Instructions Recorded Confirmed Last Taken Type Levothyroxine Sodium [Synthroid] 137 mcg PO DAILY #30 tablet 11/07/19 Unknown Rx levETIRAcetam [Keppra TAB] 500 mg PO BID #60 tablet 11/07/19 Unknown Rx Active Meds: Active Medications Acetaminophen (Tylenol) 650 mg PO Q4H PRN PRN Reason: Pain MILD(1-3)/Fever >100.5/BALL Enoxaparin Sodium (Enoxaparin) 30 mg SUB-Q QDAY MATT Lorazepam (Ativan) 2 mg IV Q1HR PRN PRN Reason: CIWA-Ar 8-15 Lorazepam (Ativan) 4 mg IV Q1HR PRN PRN Reason: CIWA-Ar 16-25 Ondansetron HCl (Zofran) 4 mg IV Q8H PRN PRN Reason: Nausea And Vomiting Sodium Chloride (Sodium Chloride Flush Syringe 10 Ml) 10 ml IV BID MATT Sodium Chloride (Sodium Chloride Flush Syringe 10 Ml) 10 ml IV PRN PRN PRN Reason: LINE FLUSH Exam - Physical Exam Narrative exam: Gen. appearance: Patient lying in bed, no apparent distress HEENT: Normocephalic, atraumatic, pupils equally round and reactive to light, eyes are , extraocular movement intact, and no sclericterus,. No JVD or thyromegaly or nodule,neck supple, no carotid bruit ,mucous membranes moist, no exudate or erythema Heart: S1, S2, regular rate and rhythm Lungs: Clear bilaterally, breathing comfortable Abdomen: Positive bowel sounds, non-tender, nondistended, no organomegaly Extremity:no edema cyanosis, clubbing Skin: no rash, dry, warm Neuro: Cranial nerves 2-12 intact, motor and sensory intact - Constitutional Vitals: Temp Pulse Resp BP Pulse Ox 97.9 F 61 13 163/111 100 11/06/19 01:42 11/06/19 04:30 11/06/19 04:30 11/06/19 04:30 11/06/19 04:30 Results - Labs CBC & Chem 7: 11/07/19 03:51 11/07/19 03:51 Labs: Abnormal lab results 11/06/19 11/06/19 11/06/19 Range/Units 01:57 01:57 01:57 RDW 17.2 H (13.2-15.2) % Seg Neutrophils % 78.2 H (40.0-70.0) % Seg Neutrophils # 8.2 H (1.8-7.7) K/mm3 Carbon Dioxide 20 L (22-30) mmol/L Glucose 153 H (75-100) mg/dL TSH 383.600 H (0.270-4.200) mlU/mL Free T4 (0.76-1.46) ng/dL Urine WBC (Auto) (0.0-6.0) /HPF U Epithel Cells (Auto) (0-13.0) /HPF 11/06/19 11/06/19 Range/Units 02:30 03:20 RDW (13.2-15.2) % Seg Neutrophils % (40.0-70.0) % Seg Neutrophils # (1.8-7.7) K/mm3 Carbon Dioxide (22-30) mmol/L Glucose (75-100) mg/dL TSH (0.270-4.200) mlU/mL Free T4 0.50 L (0.76-1.46) ng/dL Urine WBC (Auto) 55.0 H (0.0-6.0) /HPF U Epithel Cells (Auto) 31.0 H (0-13.0) /HPF - Imaging and Cardiology CT Scan - head: report reviewed Assessment and Plan Assessment Alcohol withdrawal seizure Continue CIWA protocol with IV Ativan Status post IV Keppra in the emergency room Hypertension IV hydralazine as needed for blood pressure control Urinary tract infection on Rocephin DVT prophylaxis
[2019-11-06] MEDS: cefTRIAXone/NS 1 GM/50 ML 1 GM/50 ML BAG IV SCH (10:03)
[2019-11-06] MEDS: ENOXAPARIN 40 MG/0.4 ML INJ SUB-Q SCH (10:10)
[2019-11-06] MEDS ORDERED: DEXTROSE 10% IN WATER 1,000 ML IV SCH (11:00)
--- NOTE | 2019-11-06 15:15 | Event Note ---
Date: 11/06/19 Patient seen and examined admitted for alcohol withdrawal and seizure follow EEG, cont keppra start synthroid for hypothyroidism
[2019-11-07] MEDS: LEVOTHYROXINE 112 MCG, LEVOTHYROXINE 25 MCG PO SCH ×2 (04:43→05:45)
[2019-11-07 05:11] LABS: Hematocrit 34.9 % (35.5-45.6); Hemoglobin 11.6 gm/dl (11.8-15.2); Mean Corpuscular HGB Conc 33 % (32-34); Mean Corpuscular Volume 84 fl (84-94); Platelet Count 235 K/mm3 (140-440); Red Blood Count 4.16 M/mm3 (3.65-5.03); Red Cell Distribution Width 16.5 % (13.2-15.2)
[2019-11-07 05:44] LABS: BUN/Creatinine Ratio 13; Blood Urea Nitrogen 17 mg/dL (9-20); Calcium 9.2 mg/dL (8.4-10.2); Hemolysis Index 2
[2019-11-07 06:39] LABS: Basophils % (Manual) 0 % (0.0-1.8); Total Cells Counted 100
[2019-11-07 06:40] LABS: Ovalocytes Few; Platelet Estimate Consistent w Auto; Schistocytes Rare; Target Cells Few
[2019-11-07 08:33] VITALS: BP 86/58
[2019-11-07] MEDS: ENOXAPARIN 40 MG/0.4 ML INJ SUB-Q SCH (12:39)
[2019-11-07] MEDS: cefTRIAXone/NS 1 GM/50 ML 1 GM/50 ML BAG IV SCH (12:39)
[2019-11-07] MEDS ORDERED: levETIRAcetam 500 MG TAB PO SCH (14:00)
--- NOTE | 2019-11-07 14:57 | Discharge Summary ---
Providers - Providers Date of Admission: 11/06/19 06:41 Date of discharge: 11/07/19 Attending physician: SAMIR HOUSTON 11/06/19 10:24 Consult to Dietitian/Nutrition [CONS] Routine Physician Instructions: Reason For Exam: Reason for Consult: Malnutrition 11/07/19 11:59 Consult to Physician [CONS] Routine Comment: Consulting Provider: JARVIS PATRICIA Physician Instructions: Reason For Exam: seizure [facility] Hospital[facility] Condition: Fair Hospital course: Discharge diagnosis: Possible alcohol withdrawal New onset seizure Acute hypothyroidism Mild malnutrition 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 Disposition: - TO HOME OR SELFCARE Time spent for discharge: 34 minutes Core Measure Documentation - Palliative Care Palliative Care/ Comfort Measures: Not Applicable - Core Measures Any of the following diagnoses?: none Exam - Constitutional Vitals: Temp Pulse Resp BP Pulse Ox 97.5 F L 52 L 18 86/58 95 11/07/19 08:31 11/07/19 09:07 11/07/19 10:00 11/07/19 08:31 11/07/19 09:07 General appearance: Present: no acute distress - EENT Eyes: Present: PERRL ENT: hearing intact, clear oral mucosa - Neck Neck: Present: supple, normal ROM - Respiratory Respiratory effort: normal Respiratory: bilateral: CTA - Cardiovascular Heart Sounds: Present: S1 & S2. Absent: rub, click - Extremities Extremities: pulses symmetrical, No edema Peripheral Pulses: within normal limits - Abdominal General gastrointestinal: Present: soft, non-tender, non-distended, normal bowel sounds - Integumentary Integumentary: Present: clear, warm, dry - Musculoskeletal Musculoskeletal: gait normal, strength equal bilaterally - Psychiatric Psychiatric: appropriate mood/affect, intact judgment & insight - Neurologic Neurologic: CNII-XII intact, moves all extremities Plan Activity: advance as tolerated, no driving until cleared by PCP (for 6 months) Weight Bearing Status: Weight Bear as Tolerated Diet: low fat, low salt Follow up with: ANNIE JADE MD [Primary Care Provider] - 3-5 Days LETTY TUTTLE MD [Staff Physician] - 7 Days Prescriptions: levETIRAcetam [Keppra TAB] 500 mg PO BID #60 tablet Levothyroxine Sodium [Synthroid] 137 mcg PO DAILY #30 tablet
[2019-11-07] MEDS ORDERED: ASPIRIN 325 MG TAB PO SCH (15:00)
--- NOTE | 2019-11-07 17:17 | Electroencephalogram Report ---
Electroencephalogram EEG Date of exam: 11/07/19 History: Patient is 59-year-old man with a history of hypertension, alcohol abuse, who presents with a seizure-like episode. Impression: 1. No seizures or epileptiform activity noted Description: The waking background shows an appropriate organization with well-defined anterior posterior voltage and frequency gradients. Posteriorly, there is a well-developed alpha rhythm of [8-9] Hz which is symmetrical and bilaterally reactive. Anteriorly, there is a pattern of lower voltage and slightly irregular theta and beta range frequencies. During drowsiness, there is attenuation of the background rhythms. Photic stimulation was not performed. Hyperventilation was not performed. Throughout, the recording there are no epileptiform abnormalities, focal or lateralizing features, or significant interhemispheric findings. Interpretation: A normal routine EEG does not rule out seizures or epilepsy. Clinical correlation recommended.
--- NOTE | 2019-11-07 17:17 | Consultation ---
History of Present Illness Consult date: 11/07/19 Reason for Consult: seizure Chief complaint: Seizure History of present illness: Patient is 59-year-old man with a history of hypertension, alcohol abuse. Patient was in his usual state of health until about 10:30 pm, when he began to "see colors", after which he was noted to have a seizure-like event by his . Seizure lasted about one minute, and was not associated with tongue-biting, loss of bowel/bladder control. However, patient was confused post-ictally. He states that he has never had a seizure in the past. Patient endorses that he usually drinks a 6-pack of beer per day, however has not been drinking as much over the past 2 weeks, since he quit his job, and therefore has only been drinking a small amount each day. Patient has not had any similar episodes today and is feeling better now. Past History Past Medical History: other (hypertension and alcohol abuse) Social history: lives with family, alcohol abuse Family history: no significant family history Medications and Allergies Allergies Allergy/AdvReac Type Severity Reaction Status Date / Time No Known Allergies Allergy Unverified 03/23/18 13:43 Home Medications Medication Instructions Recorded Confirmed Last Taken Type Levothyroxine Sodium [Synthroid] 137 mcg PO DAILY #30 tablet 11/07/19 Unknown Rx levETIRAcetam [Keppra TAB] 500 mg PO BID #60 tablet 11/07/19 Unknown Rx Active Meds: Active Medications Acetaminophen (Tylenol) 650 mg PO Q4H PRN PRN Reason: Pain MILD(1-3)/Fever >100.5/BALL Last Admin: 11/06/19 22:55 Dose: 650 mg Documented by: Aspirin (Aspirin) 325 mg PO QDAY [facility] Last Admin: 11/07/19 15:35 Dose: 325 mg Documented by: Enoxaparin Sodium (Enoxaparin) 40 mg SUB-Q QDAY [facility] Last Admin: 11/07/19 12:39 Dose: 40 mg Documented by: Hydralazine HCl (Apresoline) 5 mg IV Q6H PRN PRN Reason: Hypertension Ceftriaxone Sodium (Rocephin/Ns 1 Gm/50 Ml) 1 gm in 50 mls @ 100 mls/hr IV Q24HR [facility]; Protocol Last Admin: 11/07/19 12:39 Dose: 100 mls/hr Documented by: Levetiracetam (Keppra) 500 mg PO BID [facility] Last Admin: 11/07/19 15:35 Dose: 500 mg Documented by: Levothyroxine Sodium 112 mcg/ (Levothyroxine Sodium 25 mcg) 137 mcg PO DAILY@0600 [facility] Last Admin: 11/07/19 05:45 Dose: Not Given Documented by: Lorazepam (Ativan) 2 mg IV Q1HR PRN PRN Reason: CIWA-Ar 8-15 Lorazepam (Ativan) 4 mg IV Q1HR PRN PRN Reason: CIWA-Ar 16-25 Ondansetron HCl (Zofran) 4 mg IV Q8H PRN PRN Reason: Nausea And Vomiting Oxycodone/Acetaminophen (Percocet 5/325) 1 tab PO Q6H PRN PRN Reason: Pain, Moderate (4-6) Sodium Chloride (Sodium Chloride Flush Syringe 10 Ml) 10 ml IV BID [facility] Last Admin: 11/07/19 12:39 Dose: 10 ml Documented by: Sodium Chloride (Sodium Chloride Flush Syringe 10 Ml) 10 ml IV PRN PRN PRN Reason: LINE FLUSH Review of Systems All systems: negative Neurological: seizures Physical Examination - Vital Signs Vital Signs: Vital Signs Temp Resp Pulse Ox 97.9 F 18 98 11/06/19 01:40 11/06/19 01:40 11/06/19 01:40 - Physical Exam Narrative exam: Patient is alert, awake, oriented x4, follows complex commands. PERRL, EOMI, VFF, no facial weakness noted, tongue midline, b/l intact to LT. No dysarthria or aphasia noted. 5/5 strength in all extremities. B/l intact to LT. B/l intact to FTN and HTS. 2+ reflexes throughout. - Constitutional General appearance: comfortable - EENT EENT: Present: ATNC, PERRL, mucous membranes moist, hearing intact, vision intact - Respiratory Respiratory: Present: lungs clear, normal breath sounds - Cardiovascular Cardiovascular: Present: regular rate, normal S1, normal S2 Extremities: Present: no clubbing, cyanosis, no inflammation - Gastrointestinal Gastrointestinal: Present: normoactive bowel sounds, soft, non-tender - Integumentary Integumentary: Present: normal - Musculoskeletal Musculoskeletal: Present: no fluid collection, no pain - Psychiatric Psychiatric: Present: mood/affect appropriate Results - Laboratory Findings CBC and BMP: 11/07/19 03:51 11/07/19 03:51 Abnormal Lab Findings: Abnormal Labs 11/06/19 11/06/19 11/06/19 01:57 01:57 01:57 WBC Hgb Hct RDW 17.2 H Seg Neutrophils % 78.2 H Monocytes % (Manual) Eosinophils % (Manual) Seg Neutrophils # 8.2 H Lymphocytes # (Manual) Carbon Dioxide 20 L Glucose 153 H TSH 383.600 H Free T4 Urine WBC (Auto) U Epithel Cells (Auto) 11/06/19 11/06/19 11/07/19 02:30 03:20 03:51 WBC 4.3 L Hgb 11.6 L Hct 34.9 L RDW 16.5 H Seg Neutrophils % Monocytes % (Manual) 9.0 H Eosinophils % (Manual) 5.0 H Seg Neutrophils # Lymphocytes # (Manual) 1.0 L Carbon Dioxide Glucose TSH Free T4 0.50 L Urine WBC (Auto) 55.0 H U Epithel Cells (Auto) 31.0 H Assessment and Plan Patient is 59-year-old man with a history of hypertension, alcohol abuse, who presents with a seizure-like episode. According the patient's clinical findings, it is likely that the patient has had a seizure. Plan: 1. Seizure: - CT head: no acute abnormality: - MRI brain w/wo: no acute abnormality. Noted to have remote microhemorrhages, likely related to HTN. - EEG: No seizures or epileptiform activity. - Discussed with patient regarding starting keppra, and he stated that he would prefer to start seizure medication at this point. Risks/benefits/adverse effects of keppra discussed with patient, and he agreed to take this. - Start patient on keppra 500mg BID. - Possible etiology of seizure may be decreased intake of alcohol. - Further discussed with patient regarding no driving until cleared by DMV/DPS. Patient understood and accepted this. Also discussed general seizure precautions. - If patient has a seizure lasting more than 2 minutes, recommend ativan 1mg IV stat. If seizure persists, can repeat x1. Please call primary team and neurology operations consultant stat if patient has a seizure. - Recommend for patient to follow up with neurology in 3-4 weeks. -Will sign off, as I am not covering neurology service over the weekend. Recommend consult neurologist covering service over the weekend for further neurologic monitoring and management. Thank you for allowing me to take part in the care of this patient. Osbaldo Kirby MD Neurology
--- NOTE | 2019-11-07 18:00 | Magnetic Resonance Report ---
MRI BRAIN WITHOUT AND WITH CONTRAST INDICATION / CLINICAL INFORMATION: Seizure. TECHNIQUE: Multiplanar, multisequence MR images of the brain were obtained. Initially, noncontrast MRI of brain was performed on 11/07/2019 at about 1116 Eastern standard time. Subsequently postcontrast imaging was acquired on 11/07/2019 at about 1750 Eastern standard time COMPARISON: Head CT 11/06/2019 FINDINGS: LIMITATIONS: ADC map sequence was not produced. BRAIN / INTRACRANIAL CONTENTS: Remote blood breakdown products are present in the lateral aspect of the left occipital lobe. This ap pears to be associated with remote left posterior cerebral artery infarction. Elsewhere multiple [place] foci of decreased signal intensity are seen in the periphery of both cerebral hemispheres best d emonstrated on gradient echo T2*weighted sequences. These findings likely reflect the presence of rem ote, hypertensive microhemorrhages. No indication of recent intracranial hemorrhage is observed. Ventricles and cortical sulci are normal in size and configuration. There is no mass effect. No evide nce of extra-axial fluid collection is seen. No areas of abnormal brain parenchymal signal intensity are identified. There is no indication of remote cortical infarction. Diffusion weighted scans are ne gative. There is no indication of acute ischemic injury. The brainstem and cerebellum have an unremarkable appearance. CRANIOCERVICAL JUNCTION: No abnormalities are identified at the craniocervical junction. VASCULAR FLOW-VOIDS: Normal flow-voids are present within the major intracranial vessels. ORBITS: The orbits have an unremarkable appearance. SINUSES / MASTOIDS: Mild inflammatory mucosal changes are seen in anterior and mid ethmoid air cells bilaterally. Several millimeters of mucosal thickening are seen at the base of both maxillary sinuses . Paranasal sinuses are otherwise free from inflammatory mucosal disease. Inflammatory changes are seen in inferior mastoid air cells region of the mastoid tips bilaterally. Contrast administration: Following administration of intravenous contrast material enhancement of nor mal vascular structures is demonstrated. No areas of abnormal contrast enhancement are identified. IMPRESSION: 1. Remote blood breakdown products in the lateral aspect of the left occipital lobe likely reflect re mote infarction in the left posterior cerebral artery distribution. 2. Multiple small foci of decreased signal intensity in the periphery of both cerebral hemispheres on gradient echo T2*weighted sequences likely reflect remote hypertensive microhemorrhages. Signer Name: Willie Bedoya MD Signed: 11/07/2019 5:56 PM Workstation Name: [id number]
== END 2019-11-07 19:35 | disposition home or self-care (01) | DRG 101 ==
LOC: ED 01:22 → 4A 06:41
PROVIDERS: ADMIT Internal Medicine; ATTEND Internal Medicine
DX: G40.89 Other seizures (principal); E44.1 Mild protein-calorie malnutrition; N30.00 Acute cystitis without hematuria; F10.10 Alcohol abuse, uncomplicated; I10 Essential (primary) hypertension; E03.9 Hypothyroidism, unspecified; F17.210 Nicotine dependence, cigarettes, uncomplicated; Y90.9 Presence of alcohol in blood, level not specified; Z71.6 Tobacco abuse counseling; Z68.20 Body mass index [BMI] 20.0-20.9, adult; Z86.73 Personal history of transient ischemic attack (TIA), and cerebral infarction without residual deficits; Z82.49 Family history of ischemic heart disease and other diseases of the circulatory system
CPT/HCPCS: 36415; 70450; 70551; 70552; 80048; 80053; 80307; 80320; 81001; 84439; 84443; 84484; 85007; 85025; 85610; 85670; 85730; 87086; 93005; 93010; 95819; 99406; G0378; A9577; G0480; J0696; J1650; J1953

== ENCOUNTER 2020-12-14 16:05 | Emergency (ER) | payer OTHER ==
[2020-12-14] MEDS ORDERED: FAMOTIDINE 20 MG/2 ML INJ IV ONE (17:36)
[2020-12-14] MEDS ORDERED: diphenhydrAMINE 50 MG/ML VIAL IV ONE (17:36)
[2020-12-14] MEDS ORDERED: dexAMETHasone 20 MG/5 ML VIAL IV ONE (17:36)
--- NOTE | 2020-12-14 17:36 | Event Note ---
ED Screening Note ED Screening Note: discharged from the hospital yesterday he states he began having swelling to his right eye last night he reports he was started on penicillin? pt is a poor historian denies rash, eye drainage, vision changes, fever, difficulty swallowing or breathing This initial assessment/diagnostic orders/clinical plan/treatment(s) is/are subject to change based on patients health status, clinical progression and re- assessment by fellow clinical providers in the ED. Further treatment and workup at subsequent clinical providers discretion. Patient/guardian urged not to elope from the ED as their condition may be serious if not clinically assessed and managed. Initial orders include: labs, meds
[2020-12-14 18:27] LABS: Basophils % (Auto) 0.4 % (0.0-1.8); Eosinophils % (Auto) 0.1 % (0.0-4.3); Hematocrit 34.7 % (35.5-45.6); Hemoglobin 11.7 gm/dl (11.8-15.2); Lymphocytes # (Auto) 0.6 K/mm3 (1.2-5.4); Lymphocytes % (Auto) 9.2 % (13.4-35.0); Mean Corpuscular HGB Conc 34 % (32-34); Mean Corpuscular Volume 83 fl (84-94); Monocytes # (Auto) 0.5 K/mm3 (0.0-0.8); Monocytes % (Auto) 7.8 % (0.0-7.3); Platelet Count 198 K/mm3 (140-440); Red Blood Count 4.19 M/mm3 (3.65-5.03)
[2020-12-14 18:31] LABS: Red Cell Distribution Width 20.2 % (13.2-15.2)
[2020-12-14 19:29] LABS: Albumin 3.6 g/dL (3.9-5); Calcium 8.6 mg/dL (8.4-10.2)
--- NOTE | 2020-12-15 00:34 | Emergency Department Report ---
ED General Adult HPI - General Chief complaint: Allergic Reaction Stated complaint: WEAKNESS/SWELLING FACE Time Seen by Provider: 12/14/20 17:25 Source: patient Mode of arrival: Ambulatory Limitations: No Limitations - History of Present Illness Initial comments: Patient is 60 years old male with history of hypertension. Patient presented to the ER complaining of right periorbital swelling started last night. Patient stated that his symptoms started after he took his medication that was prescribed for him yesterday for UTI. Patient stated that the medication was penicillin. Patient currently denying any pain, no visual changes, no discharge. Patient denied any recent injury. - Related Data Previous Rx's Medication Instructions Recorded Last Taken Type Levothyroxine Sodium [Synthroid] 137 mcg PO DAILY #30 tablet 11/07/19 Unknown Rx levETIRAcetam [Keppra TAB] 500 mg PO BID #60 tablet 11/07/19 Unknown Rx Allergies Allergy/AdvReac Type Severity Reaction Status Date / Time No Known Allergies Allergy Unverified 03/23/18 13:43 ED Review of Systems ROS: Stated complaint: WEAKNESS/SWELLING FACE Other details as noted in HPI Comment: All other systems reviewed and negative Constitutional: denies: chills, fever Eyes: denies: eye pain, eye discharge, vision change Cardiovascular: denies: chest pain, palpitations Gastrointestinal: denies: abdominal pain, nausea Neurological: denies: headache, weakness, numbness, paresthesias, confusion ED Past Medical Hx - Past Medical History Previous Medical History?: Yes Hx Hypertension: Yes Hx Congestive Heart Failure: No Hx Diabetes: No Hx Asthma: No Hx COPD: No - Surgical History Past Surgical History?: No - Social History Smoking Status: Current Every Day Smoker Substance Use Type: None - Medications Home Medications: Home Medications Medication Instructions Recorded Confirmed Last Taken Type Levothyroxine Sodium [Synthroid] 137 mcg PO DAILY #30 tablet 11/07/19 Unknown Rx levETIRAcetam [Keppra TAB] 500 mg PO BID #60 tablet 11/07/19 Unknown Rx ED Physical Exam - General Limitations: No Limitations General appearance: alert, in no apparent distress - Head Head exam: Present: atraumatic, normocephalic, normal inspection - Eye Eye exam: Present: PERRL, EOMI, periorbital swelling. Absent: conjunctival injection, nystagmus - ENT ENT exam: Present: normal orophraynx - Neck Neck exam: Present: normal inspection, full ROM. Absent: tenderness, meningismus - Respiratory Respiratory exam: Present: normal lung sounds bilaterally - Cardiovascular Cardiovascular Exam: Present: regular rate, normal rhythm, normal heart sounds - GI/Abdominal GI/Abdominal exam: Present: soft, normal bowel sounds. Absent: distended, tenderness, guarding, rebound, rigid - Back Exam Back exam: Present: normal inspection, full ROM - Neurological Exam Neurological exam: Present: alert, oriented X3, CN II-XII intact ED Course Vital Signs 12/14/20 16:50 Temperature 99.6 F Pulse Rate 81 Respiratory 16 Rate Blood Pressure 101/73 O2 Sat by Pulse 97 Oximetry ED Medical Decision Making - Lab Data Result diagrams: 12/14/20 18:03 12/14/20 18:03 - Medical Decision Making Patient is 60 years old male with history of hypertension. Patient presented to the ER complaining of right periorbital swelling started last night. Patient stated that his symptoms started after he took his medication that was prescribed for him yesterday for UTI. Patient stated that the medication was penicillin. Patient currently denying any pain, no visual changes, no discharge. Patient denied any recent injury. Patient is a very poor historian however he is alert, oriented x3 in no acute distress. Labs reviewed and is unremarkable. Eye exam showed periorbital swelling on the right side with intact extraocular movement and no visual disturbances. Advised the patient to stop his current medication and I started the patient with ciprofloxacin for his possible UTI and strongly advised him to follow-up with his primary doctor in the next 2 to 3 days and to return to the ER if symptoms are not improved. Critical care attestation.: If time is entered above; I have spent that time in minutes in the direct care of this critically ill patient, excluding procedure time. ED Disposition Clinical Impression: Allergic reaction, UTI (urinary tract infection) Disposition: TO HOME OR SELFCARE Is pt being admited?: No Condition: Stable Instructions: Allergies, Adult, [id number] Referrals: PRIMARY CARE, [Primary Care Provider] - 3-5 Days
[2020-12-15 01:15] VITALS: BP 141/93
== END 2020-12-15 01:00 | disposition home or self-care (01) ==
LOC: ED 16:05
DX: T78.40XA Allergy, unspecified, initial encounter (principal); N39.0 Urinary tract infection, site not specified; I10 Essential (primary) hypertension; F17.200 Nicotine dependence, unspecified, uncomplicated; Z79.899 Other long term (current) drug therapy; X58.XXXA Exposure to other specified factors, initial encounter
CPT/HCPCS: 36415; 80053; 82550; 85025; 99283

== ENCOUNTER 2021-02-14 13:32 | Outpatient (CLI) | payer OTHER ==
[2021-02-14] MEDS ORDERED: LIDOCAINE (4%) 40 MG/ML TOPICAL SOLN 50 ML BOTTLE TP ONE (13:39)
[2021-02-14] MEDS ORDERED: SILVER NITRATE APPLICATOR 1 EA TP ONE (14:06)
== END 2021-02-14 13:33 | disposition home or self-care (01) ==
LOC: WOUND 13:32
PROVIDERS: ATTEND Surgery
DX: S11.89XA Other open wound of other specified part of neck, initial encounter (principal); I10 Essential (primary) hypertension; E03.9 Hypothyroidism, unspecified; F17.200 Nicotine dependence, unspecified, uncomplicated; Z85.818 Personal history of malignant neoplasm of other sites of lip, oral cavity, and pharynx; X58.XXXA Exposure to other specified factors, initial encounter; Y93.89 Activity, other specified; Y92.89 Other specified places as the place of occurrence of the external cause; Y99.8 Other external cause status
CPT/HCPCS: 11042; 11045; G0463; 99214

== ENCOUNTER 2021-02-23 13:55 | Outpatient (CLI) | payer OTHER ==
[2021-02-23] MEDS ORDERED: LIDOCAINE (4%) 40 MG/ML TOPICAL SOLN 50 ML BOTTLE TP ONE (14:16)
[2021-02-23] MEDS ORDERED: SODIUM CHLORIDE 0.9% IRR 500 ML BOTTLE IR ONE (15:15)
== END 2021-02-23 13:56 | disposition home or self-care (01) ==
LOC: WOUND 13:55
PROVIDERS: ATTEND Surgery
DX: S11.89XD Other open wound of other specified part of neck, subsequent encounter (principal); S01.00XD Unspecified open wound of scalp, subsequent encounter; I10 Essential (primary) hypertension; E03.9 Hypothyroidism, unspecified; F17.200 Nicotine dependence, unspecified, uncomplicated; Z85.818 Personal history of malignant neoplasm of other sites of lip, oral cavity, and pharynx; X58.XXXD Exposure to other specified factors, subsequent encounter

== ENCOUNTER 2021-05-02 08:18 | Outpatient (CLI) | payer OTHER ==
[2021-05-02] MEDS ORDERED: LIDOCAINE (4%) 40 MG/ML TOPICAL SOLN 50 ML BOTTLE TP ONE (08:22)
== END 2021-05-02 08:19 | disposition home or self-care (01) ==
LOC: WOUND 08:18
PROVIDERS: ATTEND Surgery
DX: S11.89XD Other open wound of other specified part of neck, subsequent encounter (principal); S01.00XD Unspecified open wound of scalp, subsequent encounter; I10 Essential (primary) hypertension; E03.9 Hypothyroidism, unspecified; F17.200 Nicotine dependence, unspecified, uncomplicated; Z85.818 Personal history of malignant neoplasm of other sites of lip, oral cavity, and pharynx; X58.XXXD Exposure to other specified factors, subsequent encounter
CPT/HCPCS: 99213; G0463